=== PATIENT | male | born 1995 | race American Indian/Alaskan Native ===

== ENCOUNTER 2021-10-18 06:04 | Emergency (ER) | payer SELFPAY ==
[2021-10-18 06:17] VITALS: BP 149/78
--- NOTE | 2021-10-18 07:06 | XRay Report ---
XR chest routine 2V INDICATION / CLINICAL INFORMATION: COUGH AND MAURO. COMPARISON: None available. FINDINGS: SUPPORT DEVICES: None. HEART /PULMONARY VASCULATURE: No significant abnormality. LUNGS / PLEURA: Mild focal patchy airspace opacities are present within the right mid to upper lung, right lung base, and left midlung. No pneumothorax. ADDITIONAL FINDINGS: No significant additional findings. IMPRESSION: Very mild patchy airspace opacities, suspicious for developing atypical pneumonia Signer Name: Mehrdad Dasilva MD Signed: 10/18/2021 7:01 AM Workstation Name: [id number]
[2021-10-18] MEDS ORDERED: BENZONATATE 100 MG CAP PO ONE (07:30)
[2021-10-18] MEDS ORDERED: ACETAMINOPHEN 500 MG TAB PO ONE (07:30)
[2021-10-18 08:34] LABS: Basophils # (Auto) 0.1 K/mm3 (0.0-0.1); Basophils % (Auto) 0.6 % (0.0-1.8); Eosinophils % (Auto) 0.1 % (0.0-4.3); Hematocrit 42.5 % (35.5-45.6); Hemoglobin 13.7 gm/dl (11.8-15.2); Lymphocytes # (Auto) 0.9 K/mm3 (1.2-5.4); Mean Corpuscular HGB Conc 32 % (32-34); Mean Corpuscular Volume 88 fl (84-94); Monocytes # (Auto) 0.6 K/mm3 (0.0-0.8); Monocytes % (Auto) 4.3 % (0.0-7.3); Platelet Count 257 K/mm3 (140-440); Red Blood Count 4.81 M/mm3 (3.65-5.03); Red Cell Distribution Width 13.3 % (13.2-15.2)
[2021-10-18 08:51] LABS: INR 1.07 (0.87-1.13); Partial Thromboplastin Time 25.8 Sec. (24.2-36.6)
[2021-10-18 08:58] LABS: Alanine Aminotransferase 17 units/L (7-56); Albumin 4.4 g/dL (3.9-5); BUN/Creatinine Ratio 16; Blood Urea Nitrogen 14 mg/dL (9-20); Calcium 9.5 mg/dL (8.4-10.2); Hemolysis Index 9
[2021-10-18] MEDS ORDERED: POTASSIUM CHLORIDE ER 20 MEQ TAB PO ONE (09:19)
[2021-10-18] MEDS ORDERED: AZITHROMYCIN 250 MG TAB PO ONE (09:19)
[2021-10-18] MEDS ORDERED: cefTRIAXone/NS 1 GM/50 ML 1 GM/50 ML BAG IV ONE (09:19)
--- NOTE | 2021-10-18 11:21 | Emergency Department Report ---
ED Shortness of Breath HPI - General Chief Complaint: Dyspnea/Respdistress Stated Complaint: MAURO Time Seen by Provider: 10/18/21 07:10 Source: patient Mode of arrival: Ambulatory Limitations: No Limitations - History of Present Illness Initial Comments: This is a 26-year-old male nontoxic, well nourished in appearance, no acute signs of distress presents to the ED with c/o of productive cough, shortness of breath, body aches, rhinorrhea, nasal congestion x several days. Patient describes productive cough as yellow mucus production. Patient denies any sick contact. Patient denies any recent travels, long car, recent hospital stays. Patient denies any calf pain or calf tenderness. Patient denies any chest pain, fever, chills, nausea, vomiting, hemoptysis, numbness, tingling, headache or stiff neck. Patient denies being Covid vaccinated. MD Complaint: shortness of breath, cough -: days(s) Severity: mild Pain Scale: 3 Quality: aching Consistency: constant Improves With: nothing Worsens With: nothing Associated Symptoms: cough Treatments Prior to Arrival: none - Related Data Allergies Allergy/AdvReac Type Severity Reaction Status Date / Time No Known Allergies Allergy Unverified 10/18/21 06:17 ED Review of Systems ROS: Stated complaint: MAURO Other details as noted in HPI Comment: All other systems reviewed and negative Constitutional: denies: chills, fever Eyes: denies: eye pain, eye discharge, vision change ENT: congestion. denies: ear pain, throat pain Respiratory: cough, shortness of breath. denies: wheezing Cardiovascular: denies: chest pain, palpitations Endocrine: no symptoms reported Gastrointestinal: denies: abdominal pain, nausea, diarrhea Genitourinary: denies: urgency, dysuria Musculoskeletal: denies: back pain, joint swelling, arthralgia Skin: denies: rash, lesions Neurological: denies: headache, weakness, paresthesias Psychiatric: denies: anxiety, depression Hematological/Lymphatic: denies: easy bleeding, easy bruising ED Past Medical Hx - Past Medical History Previous Medical History?: Yes Hx Asthma: Yes - Surgical History Past Surgical History?: Yes Additional Surgical History: LEFT ANKLE - Social History Smoking Status: Never Smoker Substance Use Type: Marijuana ED Physical Exam - General Limitations: No Limitations General appearance: alert, in no apparent distress - Head Head exam: Present: atraumatic, normocephalic - Eye Eye exam: Present: normal appearance - ENT ENT exam: Present: normal exam, normal orophraynx - Neck Neck exam: Present: normal inspection, full ROM. Absent: tenderness, meningismus, lymphadenopathy - Respiratory Respiratory exam: Present: normal lung sounds bilaterally. Absent: respiratory distress, wheezes, rales, rhonchi, stridor, chest wall tenderness, accessory muscle use, decreased breath sounds, prolonged expiratory - Cardiovascular Cardiovascular Exam: Present: regular rate, normal rhythm, normal heart sounds. Absent: bradycardia, tachycardia, irregular rhythm, systolic murmur, diastolic murmur, rubs, gallop - GI/Abdominal GI/Abdominal exam: Present: soft, normal bowel sounds. Absent: distended, tenderness, guarding, rebound, rigid, diminished bowel sounds - Extremities Exam Extremities exam: Present: full ROM - Back Exam Back exam: Present: full ROM - Neurological Exam Neurological exam: Present: alert, oriented X3, normal gait - Psychiatric Psychiatric exam: Present: normal affect, normal mood - Skin Skin exam: Present: warm, dry, intact, normal color. Absent: rash ED Course Vital Signs 10/18/21 06:10 Temperature 99.6 F Pulse Rate 94 H Respiratory 18 Rate Blood Pressure 149/78 O2 Sat by Pulse 100 Oximetry - Reevaluation(s) Reevaluation #1: 10/18/21 11:18 Patient is speaking in full sentences with no signs of distress noted. ED Medical Decision Making - Lab Data Result diagrams: 10/18/21 08:05 10/18/21 08:05 Lab Results 10/18/21 10/18/21 10/18/21 Range/Units 08:05 08:05 08:05 WBC 13.5 H (4.5-11.0) K/mm3 RBC 4.81 (3.65-5.03) M/mm3 Hgb 13.7 (11.8-15.2) gm/dl Hct 42.5 (35.5-45.6) % MCV 88 (84-94) fl MCH 28 (28-32) pg MCHC 32 (32-34) % RDW 13.3 (13.2-15.2) % Plt Count 257 (140-440) K/mm3 Lymph % (Auto) 7.0 L (13.4-35.0) % Hyde % (Auto) 4.3 (0.0-7.3) % Eos % (Auto) 0.1 (0.0-4.3) % Baso % (Auto) 0.6 (0.0-1.8) % Lymph # (Auto) 0.9 L (1.2-5.4) K/mm3 Hyde # (Auto) 0.6 (0.0-0.8) K/mm3 Eos # (Auto) 0.0 (0.0-0.4) K/mm3 Baso # (Auto) 0.1 (0.0-0.1) K/mm3 Seg Neutrophils % 88.0 H (40.0-70.0) % Seg Neutrophils # 11.9 H (1.8-7.7) K/mm3 PT 15.1 H (12.2-14.9) Sec. INR 1.07 (0.87-1.13) APTT 25.8 (24.2-36.6) Sec. Sodium 136 L (137-145) mmol/L Potassium 3.0 L (3.6-5.0) mmol/L Chloride 99.2 (98-107) mmol/L Carbon Dioxide 21 L (22-30) mmol/L Anion Gap 19 mmol/L BUN 14 (9-20) mg/dL Creatinine 0.9 (0.8-1.3) mg/dL Estimated GFR > 60 ml/min BUN/Creatinine Ratio 16 % Glucose 111 H (75-100) mg/dL Calcium 9.5 (8.4-10.2) mg/dL Total Bilirubin 0.60 (0.1-1.2) mg/dL AST 36 (5-40) units/L ALT 17 (7-56) units/L Alkaline Phosphatase 62 (35-129) units/L Troponin T < 0.010 (0.00-0.029) ng/mL Total Protein 6.9 (6.3-8.2) g/dL Albumin 4.4 (3.9-5) g/dL Albumin/Globulin Ratio 1.8 % 10/18/21 Range/Units 10:18 WBC (4.5-11.0) K/mm3 RBC (3.65-5.03) M/mm3 Hgb (11.8-15.2) gm/dl Hct (35.5-45.6) % MCV (84-94) fl MCH (28-32) pg MCHC (32-34) % RDW (13.2-15.2) % Plt Count (140-440) K/mm3 Lymph % (Auto) (13.4-35.0) % Hyde % (Auto) (0.0-7.3) % Eos % (Auto) (0.0-4.3) % Baso % (Auto) (0.0-1.8) % Lymph # (Auto) (1.2-5.4) K/mm3 Hyde # (Auto) (0.0-0.8) K/mm3 Eos # (Auto) (0.0-0.4) K/mm3 Baso # (Auto) (0.0-0.1) K/mm3 Seg Neutrophils % (40.0-70.0) % Seg Neutrophils # (1.8-7.7) K/mm3 PT (12.2-14.9) Sec. INR (0.87-1.13) APTT (24.2-36.6) Sec. Sodium (137-145) mmol/L Potassium (3.6-5.0) mmol/L Chloride (98-107) mmol/L Carbon Dioxide (22-30) mmol/L Anion Gap mmol/L BUN (9-20) mg/dL Creatinine (0.8-1.3) mg/dL Estimated GFR ml/min BUN/Creatinine Ratio % Glucose (75-100) mg/dL Calcium (8.4-10.2) mg/dL Total Bilirubin (0.1-1.2) mg/dL AST (5-40) units/L ALT (7-56) units/L Alkaline Phosphatase (35-129) units/L Troponin T < 0.010 (0.00-0.029) ng/mL Total Protein (6.3-8.2) g/dL Albumin (3.9-5) g/dL Albumin/Globulin Ratio % - EKG Data 10/18/21 11:18 Normal sinus rhythm at [address] or T wave abnormalities. Reviewed and signed by MD. - Radiology Data [facility] [address] [place] [address] XRay Report Signed Patient: JEREMIE ALLEN MR#: [id number] 9 : 1995 Acct :[id number] Age/Sex: 26 / M ADM Date: 10/18/21 Loc: ED Attending Dr: Ordering Physician: DORIS PEREZ MD Date of Service: 10/18/21 Procedure(s): XR chest routine 2V Accession Number(s): [id number] cc: DORIS PEREZ MD Fluoro Time In Minutes: XR chest routine 2V INDICATION / CLINICAL INFORMATION: COUGH AND MAURO. COMPARISON: None available. FINDINGS: SUPPORT DEVICES: None. HEART /PULMONARY VASCULATURE: No significant abnormality. LUNGS / PLEURA: Mild focal patchy airspace opacities are present within the right mid to upper lung, right lung base, and left midlung. No pneumothorax. ADDITIONAL FINDINGS: No significant additional findings. IMPRESSION: Very mild patchy airspace opacities, suspicious for developing atypical pneumonia Signer Name: Shaun Asher MD Signed: 10/18/2021 7:01 AM Workstation Name: [id number] Transcribed By: JESSICA Dictated By: SHAUN ASHER MD Electronically Authenticated By: SHAUN ASHER MD Signed Date/Time: 10/18/21700 DD/ TD/TT: - Medical Decision Making This is a 26-year-old male that presents with bronchitis with suspected Covid. Patient is stable and was examined by me. Chest x-ray has been obtained and dictated by radiologist. Patient is notified of x-ray results with no questions noted. Patient does meet clinical concerns of COVID-19 and patient was instructed and educated on signs and symptoms and to self quarantine and seek medical attention as soon as possible if symptoms worsen and continue. Labs has been obtained. EKG obtained. Medical treatment order but as per RN patient left against medical advice. I was not aware of this. I tried to contract the pateint but was unsuccessful. I was not able to fully evaluate, probably treat, and provide appropriate disposition for the patient due to patient left AGAINST MEDICAL ADVICE. Critical care attestation.: If time is entered above; I have spent that time in minutes in the direct care of this critically ill patient, excluding procedure time. ED Disposition Clinical Impression: Suspected COVID-19 virus infection PNA (pneumonia) Qualifiers: Pneumonia type: due to unspecified organism Laterality: unspecified laterality Lung location: unspecified part of lung Qualified Code(s): J18.9 - Pneumonia, unspecified organism Dyspnea, unspecified Qualifiers: Dyspnea type: unspecified Qualified Code(s): R06.00 - Dyspnea, unspecified Disposition: 07 LEFT AGAINST MEDICAL ADVICE Is pt being admited?: No Condition: Undetermined Instructions: Bacterial Pneumonia (ED) Time of Disposition: 11:21
--- NOTE | 2021-10-20 14:24 | Electrocardiograph Report ---
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
== END 2021-10-19 04:29 | disposition left against medical advice (07) ==
LOC: ED 06:04
DX: J18.9 Pneumonia, unspecified organism (principal); Z20.822 Contact with and (suspected) exposure to COVID-19; J45.909 Unspecified asthma, uncomplicated; F12.90 Cannabis use, unspecified, uncomplicated
CPT/HCPCS: 36415; 71046; 80053; 84484; 85025; 85610; 85730; 93005; 99284